=== PATIENT | male | born 1950 | race Caucasian/White ===

== ENCOUNTER 2022-09-18 07:37 | Inpatient (IN) ==
--- NOTE | 2022-08-17 15:43 | PAT Medication Instructions ---
Medication Instructions Date of Service August 17, 2022 Home Medications aspirin 81 mg tablet,delayed release 81 mg PO QAM lisinopril 10 mg tablet 10 mg PO QAM finasteride 5 mg tablet 5 mg PO QAM DO NOT take the morning of surgery lisinopril 10 mg tablet 10 mg PO QAM Take morning of surgery With a small sip of water, OTHERWISE NOTHING TO EAT OR DRINK AFTER MIDNIGHT: aspirin 81 mg tablet,delayed release 81 mg PO QAM (unless directed otherwise by surgeon) finasteride 5 mg tablet 5 mg PO QAM Other Notes If you have any questions please call us at [phone] or [phone] or [phone] or [phone]
--- NOTE | 2022-08-21 11:33 | Anesthesiology Consultation ---
Date of Service August 21, 2022 Assessment & Plan (1) Encounter for pre-operative examination: - COVID screening: Per assessment on 08/21: No known COVID-19 positive contacts or current COVID-19 related symptoms. Travel screen negative. Patient vaccinated. At surgeon discretion if preop Covid testing being done. - Outpatient joint pathway: Per OR booking comments, surgoen requested review for outpatient joint program. Patient seen at [facility] 08/21. Pt reports would be support person and she voiced concerns about caring post-operatively same day after surgery. He also reports significant difficulty with post-op pain management with previous knee replacement surgery. Case reviewed with Dr. Friend. Patient is not recommended candidate to proceed as possible outpatient joint pathway. Patient/Jeannie at surgeon's office made aware- pt changed to inpatient pathway. Chart Review Chart Review: Acceptable Risk for Surgery and Patient seen in Pre Admission Testing Teaching & Discussion Pre-Anesthesia Teaching/Discussion Notes: Instructed NPO after midnight before surgery,except medications with 15 cc of water. Medication instructions provided according to the [facility] guidelines. History Surgery Operation Date: 09/18/22 12:30 Proposed Procedures p Right Total Knee Arthroplasty - Jh Swain DO Height/Weight Height: 6 ft Weight: 95 kg Allergies Allergy/AdvReac Type Severity Reaction Status Date / Time No Known Drug Allergies Allergy Unknown . Verified 08/17/22 10:29 Medications Home Medications Medication Instructions Recorded Confirmed Last Taken aspirin 81 mg tablet,delayed 81 mg PO QAM 10/22/19 08/17/22 Unknown release lisinopril 10 mg tablet 10 mg PO QAM 10/22/19 08/17/22 Unknown finasteride 5 mg tablet 5 mg PO QAM 08/17/22 08/17/22 Unknown Past Medical History Medical History History of COVID-19 04/2022- sore throat, runny nose > resolved Hypertension Sleep apnea Cannot tolerate CPAP Exercise / Class Metabolic Activity II 4-5 Yardwork/Stairs/Walk up hill (one FS (no CP, no SOB)) Past Family History Family History Other No family history of adverse response to anesthesia Past Surgical History Surgical History History of knee replacement procedure of left knee History of meniscectomy of left knee Hx of arthroscopy of left knee Hx of colonoscopy Hx of laminectomy x3 Hx of rotator cuff surgery left Hx of sinus surgery Past Anesthesia History No Hx of Anesthesia Complications and No Family Hx of Anesthesia Complications Social History Smoking Status: Never smoker Do You Dip or Chew Tobacco: No Hx Alcohol Use: Yes alcohol intake frequency: a few times a month Hx Substance Use: No substance use type: does not use Review of Systems Patient denies chest pain, shortness of breath, dyspnea on exertion, fever, chills, cough, wheezing, palpitations. Physical Exam Vital Signs VITALS BP 147/88 P 68 TEMP 98.3 SP02 97%RA RESP 18 PHYSICAL Full cervical extension range of motion. Full TMJ range of motion. TMD 3 finger breaths Mallampati Score 3 Dentition: intact, + crowns Lungs: clear throughout to auscultation Cardiac: regular rate and rhythm, no murmurs noted Spine: normal Carotid arteries: negative bruit Extremities: no edema Lab Results Anesthesia Preop Results Results Anesthesia Widget: WBC 5.48 K/ul (4.8-10.8) 08/21/22 Hgb 15.7 g/dl (14.0-18.0) 08/21/22 Hct 44.9 % (40.1-51.0) 08/21/22 Plt 220 K/uL (130-400) 08/21/22 Na 139 mmol/L (136-145) 08/21/22 K 4.1 mmol/L (3.5-5.1) 08/21/22 Cl 106 mmol/L (98-107) 08/21/22 CO2 29 mmol/L (21-32) 08/21/22 BUN 14 mg/dl (6-23) 08/21/22 Creat 1.14 mg/dl (0.6-1.4) 08/21/22 Glucose Level 71 mg/dl (70-99(Fasting)) 08/21/22 PT 10.5 Seconds (9.0-12.0) 08/21/22 PTT 25.6 Seconds (21.0-31.0) 08/21/22 INR 1.0 (0.9-1.1) 08/21/22 Blood Type O Positive 08/21/22 Antibody Screen NEGATIVE 08/21/22 Testing Electrocardiogram Date: 08/21/22 NSR at 70bpm. Normal ECG. 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 Chest X-Ray Date: 08/21/22 FINDINGS: Lung volumes are normal. Lungs are clear. There is no pneumothorax or pleural effusion. Cardiac size is normal. Mediastinal contours are normal. There is no evidence for pulmonary edema. IMPRESSION: No acute cardiopulmonary findings. Stress Test Date: 02/09/17 Type: exercise EKG treadmill stress test negative for ischemia. Resting and exercise-induced arterial hypertension. No chest pain. 88% MPHR. COVID-19 Risk Screen Screening Information COVID-19 Screen Date: 08/21/22 Exposure 21 Days Family/Household +COVID Last 21 Days: No Exposure 10 Days Any COVID Exposure Last 10 Days: No Symptoms Last 10 Days Experienced COVID Sx Last 10 Days: No + COVID 0-90 Days COVID + in Last 0-90 Days: No
--- NOTE | 2022-09-14 08:38 | History & Physical Report ---
Date of Service September 14, 2022 Assessment & Plan (1) Osteoarthritis, knee: We will proceed with a right total knee arthroplasty. Postoperatively he will be started on aspirin for DVT prophylaxis and kept overnight in the hospital for postoperative medical management. He plans to use [employer] upon discharge. History of Present Illness Chief Complaint: Osteoarthritis of the right knee. Primary Care Provider: Ajit Oropeza MD Robert is a pleasant 72-year-old male who had a left knee replacement done by Dr. Torres in [facility] about 20 years ago. He has done well with that. Unfortunately, he is dealing with a lot of right knee pain. He has known osteoarthritis of his right knee. I have given him injections in the past. He is to the point where he cannotlive with the knee the way it is anymore. After failing conservative treatment, he has elected to proceed with a right total knee arthroplasty. Allergies Allergy/AdvReac Type Severity Reaction Status Date / Time No Known Drug Allergies Allergy Unknown . Verified 08/17/22 10:29 Home Medications Medication Instructions Recorded Confirmed Type aspirin 81 mg tablet,delayed 81 mg PO QAM 10/22/19 08/17/22 History release lisinopril 10 mg tablet 10 mg PO QAM 10/22/19 08/17/22 History finasteride 5 mg tablet 5 mg PO QAM 08/17/22 08/17/22 History Past Med/Surg History Medical History History of COVID-19 04/2022- sore throat, runny nose > resolved Hypertension Sleep apnea Cannot tolerate CPAP Surgical History History of knee replacement procedure of left knee History of meniscectomy of left knee Hx of arthroscopy of left knee Hx of colonoscopy Hx of laminectomy x3 Hx of rotator cuff surgery left Hx of sinus surgery Family History Other No family history of adverse response to anesthesia Social History Smoking Status: Never smoker Second Hand Exposure: No; Hx Alcohol Use: Yes Hx Substance Use: No Preferred Language: Malagasy Communication Ability: Effective Winder Helper Required: No Beliefs That Will Affect Care: None Current Living Situation: Spouse Feels Safe at Home: Yes Assistive Devices: Hearing Aid - Bilateral Review of Systems All systems reviewed & are unremarkable except as noted in HPI & below. Physical Exam On physical examination the right knee, he has a slight varus deformity. He is range of motion of 0 to 120 degrees. He has no instability. He has pain over the distal medial femoral condyle and over the medial joint line.. Constitutional WD/WN, vitals as above Eyes PERRL, conjunctivae normal, anicteric sclerae ENMT external ear and nose normal, oropharynx normal Neck trachea midline, no thyromegaly Respiratory normal respiratory effort, lungs clear to auscultation Cardiovascular RRR, no murmur, no edema Gastrointestinal (Abdomen) normal bowel sounds, soft, nontender, no hepatosplenomegaly Skin no rashes, warm and dry Psychiatric A+Ox3, euthymic affect Results & Data Results & Data Laboratory Results . Diagnostic Findings X-rays of the right knee show advanced osteoarthritis with joint space narrowing, osteophyte formation, and [id number] articulation. PG Care Time/CCT Total # of Minutes Spent Total Time Spent with Patient: Total time spent is greater than 50% in coordination of care (as documented) at patient's floor/unit and/or counseling patient: Coding Level of Care Code None Diagnoses Osteoarthritis, knee M17.10
[~2022-09-18 07:37] MED LIST: ACETAMINOPHEN 500 MG TAB PO SCH; BUPIVACAINE 0.5 % 5 MG/1 ML PF 10ML VIAL ONE; FAMOTIDINE 20 MG TAB PO SCH; GABAPENTIN 300 MG CAP PO SCH; LR 500ML BOLUS, THEN 15ML/HR IV SCH; LR 60ML/HR IV SCH; ORTHO JOINT MIX INFIL SCH; ROPIVACAINE 0.5% 5 MG/ML 30 ML VIAL ONE; TRANEXAMIC ACID 1,000 MG **IV Intra-op IV SCH; TRANEXAMIC ACID 1,000 MG **IV Pre-op IV SCH; ceFAZolin 2000MG 2,000 MG/15 ML SYR IV SCH; dexAMETHasone 4 MG TAB PO SCH
--- NOTE | 2022-09-18 10:44 | History & Physical Bridge Note ---
Date of Service September 18, 2022 History & Physical Bridge Note I have examined the patient, reviewed the History & Physical and in the interval since the performance of the History & Physical I have noted the following changes of clinical significance: no changes noted
[2022-09-18] MEDS ORDERED: MIDAZOLAM HCL 1 MG/ML 2ML VIAL ONE (11:48)
[2022-09-18] MEDS ORDERED: ORTHO JOINT ANESTHETIC ONE (13:06)
[2022-09-18] MEDS ORDERED: LIDOCAINE 2% MPF LOCAL 5 ML VIAL INFIL ONE (14:11)
[2022-09-18] MEDS ORDERED: PROPOFOL IV EMULSION 10 MG/ML 20 ML VIAL IV ONE (14:11)
[2022-09-18] MEDS ORDERED: PHENYLEPHRINE HCL 10 MG/ML VIAL ONE (14:35)
--- NOTE | 2022-09-18 14:47 | Operative Report ---
PG Post Operative Report Pre & Post Diagnosis Operation Date: 09/18/22 12:30 Pre-Op Diagnosis: Right Knee Osteoarthritis Post-Op Diagnosis: Right Knee Osteoarthritis I identified the patient and participated in the time-out.: Yes Procedure Operation Date: 09/18/22 12:30 Actual Procedures p Right Total Knee Arthroplasty(Right) - Jh Swain DO Surgeon Jh Swain DO Chemical Process Analyst Jh Altman PA-C Estimated Blood Loss 20 Findings Consistent with Post-Op Diagnosis Specimens Right femoral and tibial bone Description of Procedure Implants used: I used a Jemma Persona total knee arthroplasty system with a size 10 PS femur, G tibia, 37 oval patella, and a size 10 CPS polyethylene bearing. All components were cemented in place with Biomet cement. Robert arrived [facility] for the above procedure. He was seen in the preoperative holding area and the operative extremity was identified and signed. He was given a preoperative antibiotic, TXA, a spinal anesthetic and an adductor nerve block. He was taken back to the operating room and laid on the table in supine position. He was given basic sedation. The operative knee was then prepped and draped in sterile fashion. A timeout was done, and the patient and the operative extremity was properly identified. A midline incision was made directly over the patella. Dissection was taken down to the extensor mechanism. A subvastus arthrotomy was used. The medial retinaculum was released and the fat pad was mostly excised. The knee was flexed and the ACL, PCL, and meniscus were removed. A drill was sent down the center of the femoral canal followed by an intramedullary matheus. Off that matheus a distal femoral cutting block was placed. 9 mm was resected off the distal femur at 5 of valgus. A posterior referencing AP sizing guide was then placed on the distal femur. The femur measured to be a size 10. 2 drill holes were placed in 3 of external rotation. A 4-in-1 cutting block was then impacted into place. Anterior, posterior, and chamfer cuts were then made. The proximal tibia was then exposed. An external tibial alignment guide was placed. A tibial cut guide was then anchored in place and the proximal tibia was then resected. The posterior aspect of the knee was then opened up and any additional meniscus fragments and osteophytes were removed. The tibia measured to be a size G. The tibial plate was then placed in the appropriate rotation and the tibia was drilled and punched. Trial components were then placed. I used a size 10 CPS polyethylene insert. The knee was brought through a full range of motion and felt to be stable. The peg holes for the femoral component were then drilled. The patella was then everted and 9 mm was resected off the posterior aspect of the patella. The patella measured to be a size 37 oval. 3 peg holes were then drilled. A trial patella was placed. The knee was once again brought through a full range of motion and felt to be stable. Trial components were then removed. The surrounding soft tissues were injected with 100 cc of an orthopedic pain control cocktail. All components were then cemented into place with Biomet cement. The final polyethylene insert was then snapped into place. Once cement was dry the tourniquet was deflated. Hemostasis was obtained. A dilute betadyne lavage was then done for 3 minutes. The joint was then irrigated with normal saline solution. The subvastus arthrotomy was then closed with #1 Vicryl suture. The skin was closed with 2-0 Vicryl, 3-0V lock suture, and marin. A soft compressive dressing was placed. He was then transferred to a hospital bed and taken to the postanesthesia care unit in stable condition. He tolerated the procedure well. Jh Altman PA-C, was present for the entire procedure. He was critical for patient positioning, prepping, draping, retraction exposure, wound closure and application of sterile dressing. I attest to the content of the Intraoperative Record and any orders documented therein. Any exceptions are noted below.
--- NOTE | 2022-09-18 15:46 | XRay Report ---
XR knee RT 1 or 2V routine HISTORY: 72 years-old Male Surgical Post Op right knee total joint arthroplasty COMPARISON: None TECHNIQUE: 2 views of the right knee FINDINGS: Total joint arthroplasty with patellar resurfacing. Anterior midline skin marin are noted along wit h expected postoperative soft tissue swelling with deep tissue air. No acute fracture or unexpected o paque foreign body. IMPRESSION: Total joint arthroplasty and patella resurfacing with expected postoperative changes. ACT 112: Negative or not required by law. The above report was generated using voice recognition software. It may contain grammatical, syntax o r spelling errors. Electronically signed by: Leon Jacob M.D. 09/18/2022 3:44 PM
--- NOTE | 2022-09-18 17:09 | Anesthesiology Progress Note ---
Date of Service September 18, 2022 Anesthesia Post Procedure Vital Signs Vital Signs: Temp Pulse Pulse Resp BP Pulse Ox O2 Del Method 09/18/22 16:55 36.3 C L 67 20 130/84 98 Room Air 09/18/22 16:45 72 15 140/83 96 Room Air 09/18/22 16:35 69 16 135/78 98 Room Air 09/18/22 16:25 73 18 130/95 97 Room Air 09/18/22 16:15 73 15 134/86 98 Room Air 09/18/22 16:05 71 15 129/79 95 Room Air 09/18/22 15:55 71 17 128/82 96 Room Air 09/18/22 15:45 71 18 127/79 95 Room Air 09/18/22 15:35 73 16 114/77 98 Room Air 09/18/22 15:25 72 16 126/74 100 Oxymask 09/18/22 15:15 36.4 C L 99 H 16 130/82 98 Oxymask 09/18/22 09:30 Room Air 09/18/22 09:28 36.4 C L 92 H 20 174/104 H 97 Room Air O2 Flow Rate 09/18/22 16:55 09/18/22 16:45 09/18/22 16:35 09/18/22 16:25 09/18/22 16:15 09/18/22 16:05 09/18/22 15:55 09/18/22 15:45 09/18/22 15:35 09/18/22 15:25 5 09/18/22 15:15 5 09/18/22 09:30 09/18/22 09:28 Transfer of Care Handoff Completed per policy Notes Mental Status: alert / awake / arousable Patient Amnestic to Procedure: Yes Nausea / Vomiting: adequately controlled Pain: adequately controlled Airway Patency, RR, SpO2: stable & adequate BP & HR: stable & adequate Hydration State: stable & adequate Neuraxial Anesthesia: was administered and sensory block is resolving Anesthetic Complications: no major complications apparent and Pt Satisfied with anesthetic care
[2022-09-18] MEDS ORDERED: NALOXONE HCL 0.4 MG/1 ML VIAL/CARP IV PRN (17:30)
[2022-09-18] MEDS ORDERED: METOCLOPRAMIDE HCL INJ 5 MG/ML 2 ML VIAL IV PRN (17:30)
[2022-09-18] MEDS ORDERED: ONDANSETRON INJ 2 MG/ML 2 ML VIAL IV PRN (17:30)
[2022-09-18] MEDS ORDERED: HYDROmorphone INJ 0.5 MG/0.5 ML SYR IV PRN (17:30)
[2022-09-18] MEDS ORDERED: MAGNESIUM HYDROXIDE SUSP 30 ML UDC PO PRN (17:30)
[2022-09-18] MEDS ORDERED: bisacodyL 10 MG SUPP PR PRN (17:30)
[2022-09-18] MEDS: SODIUM CHLORIDE 0.9% 1000ML 1,000 ML IV SCH (18:23)
[2022-09-18] MEDS: KETOROLAC TROMETHAMINE 15 MG/ML VIAL IV SCH (18:23)
[2022-09-18] MEDS: ASPIRIN 81 MG ECTAB PO SCH (20:27)
[2022-09-18] MEDS: SENNA 8.6 MG TAB PO SCH (20:27)
[2022-09-18] MEDS: DOCUSATE SODIUM 100 MG CAP PO SCH (20:27)
[2022-09-18] MEDS: ceFAZolin 2000MG 2,000 MG/15 ML SYR IV SCH (20:31)
[2022-09-18] MEDS: ACETAMINOPHEN 500 MG TAB PO SCH (22:02)
[2022-09-19] MEDS: SODIUM CHLORIDE 0.9% 1000ML 1,000 ML IV SCH (04:10)
[2022-09-19] MEDS: ACETAMINOPHEN 500 MG TAB PO SCH ×3 (05:24→21:05)
[2022-09-19] MEDS: KETOROLAC TROMETHAMINE 15 MG/ML VIAL IV SCH ×4 (05:24→18:16)
[2022-09-19] MEDS: ceFAZolin 2000MG 2,000 MG/15 ML SYR IV SCH (05:24)
--- NOTE | 2022-09-19 06:27 | Orthopedic Progress Note ---
Date of Service September 19, 2022 Assessment & Plan (1) Status post right knee replacement: Overall is doing very well. Is not having much pain in the right knee. He will be seen by physical therapy again today for ambulation and range of motion exercises. He is on aspirin for DVT prophylaxis. He can be discharged home later today. He will follow-up with orthopedics in 2 weeks. Yogesh Jones was seen and examined at bedside this morning. Overall he is doing very well. Is not having much pain in the right knee. He is already been up and ambulating around his room. He has no complaints.. Review of Systems All systems reviewed & are unremarkable except as noted in HPI & below. Physical Exam On physical examination of the right knee, the dressing is clean and dry. His leg is out full extension. He is active dorsiflexion and plantarflexion of his right ankle.. Results & Data Results & Data Laboratory Results . Diagnostic Findings Postoperative x-rays of the right knee show the prosthesis to be in anatomic alignment without any evidence of fracture, screws, or loosening. PG Care Time/CCT Total # of Minutes Spent Total Time Spent with Patient: Total time spent is greater than 50% in coordination of care (as documented) at patient's floor/unit and/or counseling patient: Coding Level of Care Code 83781 Post Operative Follow-Up Diagnoses Status post right knee replacement Z96.651
--- NOTE | 2022-09-19 06:28 | Discharge Summary ---
Date of Service September 19, 2022 Admission HPI (Per Admitting) Robert is a pleasant 72-year-old male who had a left knee replacement done by Dr. Torres in [facility] about 20 years ago. He has done well with that. Unfortunately, he is dealing with a lot of right knee pain. He has known osteoarthritis of his right knee. I have given him injections in the past. He is to the point where he cannotlive with the knee the way it is anymore. After failing conservative treatment, he has elected to proceed with a right total knee arthroplasty. Admission Exam (Per Admitting) On physical examination the right knee, he has a slight varus deformity. He is range of motion of 0 to 120 degrees. He has no instability. He has pain over the distal medial femoral condyle and over the medial joint line.. Principal Diagnosis Same as "Discharge Diagnosis" noted below under Discharge Instructions. Discharge Exam On physical examination of the right knee, the dressing is clean and dry. His leg is out full extension. He is active dorsiflexion and plantarflexion of his right ankle.. Discharge Data Procedures Performed Operation Date: 09/18/22 12:30 Actual Procedures p Right Total Knee Arthroplasty(Right) - Jh Swain DO Ordered Studies 09/18/22 05:00 US - OR guided needle placemen Routine Hospital Course (1) Status post right knee replacement: On September 18, [address] [facility] and underwent a right knee replacement without complication. He had a spinal anesthetic. Postoperatively he was started on aspirin for DVT prophylaxis and transferred to the general orthopedic floors. His hospital course was uneventful. On postop day #1, his vital signs were stable and his pain was well controlled. He was able to participate well with physical therapy doing ambulation and range of motion exercises. He was then discharged home. He will follow-up with orthopedics in 2 weeks. PG Care Time/CCT Total # of Minutes Spent Total Time Spent with Patient: Total time spent is greater than 50% in coordination of care (as documented) at patient's floor/unit and/or counseling patient: Discharge Plan Discharge Items Patient Disposition: Home - Home Health Services Reason For Visit: DJD Right Knee Discharge Diagnosis: Right knee replacement Activity: Per Instructions section Non-emergency contact: Surgeon Call non-emergency contact if: your wound has increased redness and your wound has increased drainage Follow-up/Referrals: Lebron Pop MD [Primary Care Provider] - Diet: Regular Addtl Attending Provider Instructions: Activity and Therapy Recommendations: * If you are using [facility] then therapy will be provided at your home until they feel you have accomplished all of your goals. * If you are using [facility] then Physical Therapy will be provided until they feel you are ready to start Outpatient Physical Therapy. * If you are not using home therapy then Outpatient Physical Therapy should start about 3-5 days from your day of surgery. Therapy will last about 6-10 weeks * It is important not to put a pillow under your knee when you are relaxing or sleeping. It is just as important to make sure you are getting your knee perfectly straight as it is to regain your knee bend. * You were shown a series of exercises in the hospital. Do these exercises three times each day including the exercises you were shown in physical therapy. * Get up and walk several times each day. For the first four weeks, try not to stand or walk for more than one hour at a time. If you do stand or walk for more than one hour, you will not hurt anything, but your leg will likely swell. * As you feel comfortable, you may change from the walker or crutches to a cane and then to independent walking. Medications: * Narcotic You will likely be sent home from the hospital with a prescription for the narcotic pain medication that worked best throughout your stay. * Aspirin Most patients will be required to take Aspirin 81mg twice a day for 6 weeks after surgery. This is obtained [id number] and a prescription is not necessary. * Other medications may be prescribed for specific circumstances. If you have any questions, please call the office at . * Resume previous home medications unless otherwise instructed TEDs/Elastic Stockings: The white elastic stockings help limit swelling and prevent blood clots from forming in your legs.~ The more you wear them, the more they work. Wear them for six weeks. Dressing Care: The dressing can be changed after physical therapy on postop day #1. Daily dry dressing changes for a few days, especially if the incision is still draining some. If the incision is not draining then you may leave the marin open to air. If there is a little bit of drainage or if the marin are getting stuck on your clothing then cover the incision with a dry dressing. The marin will be removed at your 2 week follow-up appointment. Showering: You may shower 5 days from the day of surgery as long as the incision is no longer draining. You may shower with the marin exposed. Let soapy water run over the marin and pat them dry. Do not scrub or soak the incision. Things To Watch For: * Drainage from the incision site that occurs more than one week after your surgery. * Increased redness at the incision site. * Fever above 102 degrees Fahrenheit. * Unusual chest pain or shortness of breath. * Call [facility] at with any of the above problems Follow-Up Visit: Follow-up with Dr. Swain's PA (Jh Altman) 2-3 weeks after your day of surgery. He will remove your marin and answer any questions. If you have any additional questions or concerns, Dr Swain is usually in the office at the same time and will be available An appointment was probably scheduled when you signed-up for surgery in the office. If you have any questions call Office Instructions: More detailed instructions as well as Frequently Asked Questions were provided in a folder by our office when you signed-up for surgery. Please review these instructions when you get home. If you have any further questions or concerns, please feel free to call the office at [phone] Pending Studies at Discharge: No Stand-Alone Forms: My [facility] Medications and DC Order Prescriptions: New oxycodone-acetaminophen 5-325 mg tablet 1 tab PO Q6H PRN (Reason: pain) Qty: 30 0RF Continued lisinopril 10 mg tablet 10 mg PO QAM finasteride 5 mg Tablet 5 mg PO QAM Changed aspirin 81 mg tablet,delayed release (DR/EC) 81 mg PO BID 42 Days Qty: 0 0RF Discharge Orders: Discharge Order (Routine); Ordered 09/19/22 Ordered By: Jh Swain Admission Data Admit Date/Time: 09/18/22 15:17 Attending Provider: Jh Swain Admit Provider: Jh Swain Primary Care Provider: Lebron Pop
[2022-09-19] MEDS ORDERED: dexAMETHasone 4 MG TAB PO SCH (08:00)
[2022-09-19] MEDS: lisinopril 10 MG TAB PO SCH (08:36)
[2022-09-19] MEDS: ASPIRIN 81 MG ECTAB PO SCH ×2 (08:36→21:04)
[2022-09-19] MEDS: DOCUSATE SODIUM 100 MG CAP PO SCH ×2 (08:36→21:06)
[2022-09-19] MEDS: FINASTERIDE 5 MG TAB PO SCH (08:36)
[2022-09-19] MEDS: MULTIVITAMIN TAB PO SCH (08:37)
--- NOTE | 2022-09-19 09:56 | CT Scan Report ---
HEAD CT NONCONTRAST CT DOSE: 614.27 mGy.cm HISTORY: Left-sided weakness. Stroke. TECHNIQUE: Multiaxial CT images of the head were performed without the use of intravenous contrast. A utomated exposure control was utilized for this study. A dose lowering technique was utilized adheri ng to the principles of ALARA. Comparison: None. Findings: There is a 1.3 cm polyp/retention cyst within the left nasal cavity and image 3. The mastoi d air cells are clear. There are mild atrophy and mild microvascular ischemic change noted within the brain. There is no mass, hematoma, or midline shift. Linear focus of hypodensity within the right po sterior frontal lobe near the high convexity best seen on images 25 through 28. There is associated l oss of the mills-white junction. This is consistent with a small acute infarct. Impression: Small acute infarct involving the right posterior frontal lobe near the high convexity. No intracrani al hemorrhage. ACT 112: Negative or not required by law. Electronically signed by: Tanmay Gonzalez M.D. 09/19/2022 9:54 AM
[2022-09-19 10:27] LABS: Hematocrit (blood only) 38.6 % (40.1-51.0); Mean Corpuscular Hgb Conc 36.3 g/dL (32.0-36.0); Mean Corpuscular Volume 85.4 fL (80.0-100.0); Mean Platelet Volume 9.2 fL (9.4-12.4); Platelet Count 214 K/uL (130-400); RDW Coefficient of Variation 11.9 % (11.5-14.5); Red Blood Count 4.52 M/uL (4.63-6.08); White Blood Count 16.19 K/ul (4.8-10.8)
[2022-09-19 10:38] LABS: Partial Thromboplastin Ratio 0.9; Partial Thromboplastin Time 23.8 Seconds (21.0-31.0); Prothrombin Time 10.8 Seconds (9.0-12.0)
[2022-09-19] MEDS ORDERED: LORazepam 1 MG TAB PO ONE ×2 (10:55→14:30)
[2022-09-19 11:15] LABS: Albumin Level 4.1 gm/dl (3.4-5.0); BUN Creatinine Ratio 20.2 (10-20); Bilirubin,Total 0.5 mg/dl (0.2-1.0); Creatinine Clr Calc Pharmacy 60.1 ml/min; Est GFR (African American) 62.9 ml/min; Est GFR (Non-African American) 54.3 ml/min; Magnesium 2.2 mg/dl (1.7-2.4); Potassium 3.9 mmol/L (3.5-5.1); Total Protein 6.1 gm/dl (6.0-8.3)
[2022-09-19 11:56] LABS: Chol HDL Ratio 4.5 (0-5)
[2022-09-19 13:03] LABS: Estimated Average Glucose 114 mg/dl; Hemoglobin A1C 5.6 % (4.5-5.6)
--- NOTE | 2022-09-19 13:09 | XCELERA ---
[id number]
--- NOTE | 2022-09-19 13:28 | Electrocardiogram Report ---
Test Reason : Blood Pressure : / mmHG Vent. Rate : 124 BPM Atrial Rate : 124 BPM P-R Int : 174 ms QRS Dur : 068 ms QT Int : 302 ms P-R-T Axes : 065 -06 085 degrees QTc Int : 433 ms Sinus tachycardia Left atrial enlargement Nonspecific T wave abnormality Lateral leads Abnormal ECG When compared with ECG of 21-AUG-2022 11:54, Vent. rate has increased BY 54 BPM Nonspecific T wave abnormality Lateral leads now present Confirmed by Jeffrey Kendrick ([id number]) on 09/19/2022 1:28:28 PM Referred By: Jh Swain Confirmed By:Jeffrey Kendrick
--- NOTE | 2022-09-19 14:34 | Hospitalist Consultation ---
Date of Consultation September 19, 2022 Assessment & Plan (1) Stroke: Stroke alert on 09/19 for left facial numbness, left facial droop, and left hand numbness/weakness. Last known well was prior night as patient noted the symptoms in the AM but no know time well in the morning. - CT head on 09/19 showing acute stroke - Full stroke work-up pending: * MRI brain * CTA head/neck * A1c of 5.6%, lipids showed LDL 130, HDL 42. * Echo on 09/19 showed no PFO * Neuro consulted - Will see tomorrow - Optimize meds with ASA, statin - Likely discharge tomorrow. (2) Status post right knee replacement: S/p right TKA with Dr. Swain on 09/18. No major issues noted in operative report. - Care per primary team (3) Hypertension: BP normally in the 140/80 range. SBP as high as 220 in acute setting of stroke alert, but now back down to 160/90. - Permissive hypertension in acute stroke setting - Continue home lisinopril for now (4) Carpal tunnel syndrome of left wrist: Long-standing hand pain in the left hand. Is following with Dr. Swain. - No acute needs (5) DVT prophylaxis: History of Present Illness Attending Physician: Jh Swain, DO History of Present Illness 72yo M w/ hx of HTN who presents as a stroke alert at 9:15am. Per patient, he went to bed in normal state of health after a routine right TKA with Dr. Swain. This morning, he felt his left hand was more numb and clumsy than it was when he went to bed. He has long-standing carpal tunnel which has been worse over the last few months. When he woke up this morning, he felt his left hand was more clumsy than before and that it was more numb as well. Additionally, he felt his left-side of the face had a droop where there wasn't one before. He is not sure if he woke up with the numbness and clumsiness of his hand, though he knows it was present when eating breakfast. Likewise, for his face, he noted it when cleaning up this morning, but otherwise is not sure when it began. Otherwise, he notes no other neurologic symptoms such as dysphagia, aphasia, weakness, numbness, or other concerns. Allergies Allergy/AdvReac Type Severity Reaction Status Date / Time No Known Drug Allergies Allergy Unknown . Verified 09/18/22 09:27 Home Medications Medication Instructions Recorded Confirmed Type aspirin 81 mg tablet,delayed 81 mg PO QAM 10/22/19 09/18/22 History release lisinopril 10 mg tablet 10 mg PO QAM 10/22/19 09/18/22 History finasteride 5 mg tablet 5 mg PO QAM 08/17/22 09/18/22 History oxycodone-acetaminophen 5 mg-325 1 tab PO Q6H PRN pain #30 tabs 09/19/22 Rx mg tablet Patient History Medical History (Updated 09/19/22 @ 14:56 by Angelito Molina MD) History of COVID-19 04/2022- sore throat, runny nose > resolved Hypertension Sleep apnea Cannot tolerate CPAP Surgical History History of knee replacement procedure of left knee History of meniscectomy of left knee Hx of arthroscopy of left knee Hx of colonoscopy Hx of laminectomy x3 Hx of rotator cuff surgery left Hx of sinus surgery Family History Other No family history of adverse response to anesthesia Social History Smoking Status: Never smoker Second Hand Exposure: No; Do You Dip or Chew Tobacco: No; Tobacco Cessation Education Requested by Patient: No Hx Alcohol Use: Yes Hx Substance Use: No Preferred Language: Belarusian Communication Ability: Effective Colorman Required: No Beliefs That Will Affect Care: None Current Living Situation: Spouse Other Information That Helps Us Care for You: No Feels Safe at Home: Yes Safety Concerns: Feels Safe At This Time Assistive Devices: Walker Review of Systems Review of Systems: All systems reviewed & are unremarkable except as noted in HPI & below Physical Exam Constitutional: WD/WN, vitals as above Eyes: EOM intact bilaterally; no conjunctival abnormality ENMT: external ear and nose normal, oropharynx normal Neck: trachea midline, no thyromegaly normal visual inspection Respiratory: normal respiratory effort, lungs clear to auscultation no respiratory distress Cardiovascular: RRR, no murmur, no edema Gastrointestinal (Abdomen): Inspection/Auscultation: abdomen normal to inspection; abdomen not distended Musculoskeletal: no cyanosis or clubbing, extremities motor strength 5/5 Skin: no rashes, warm and dry Neurologic: moves all extremities and awake Left hand with poor coordination. Left facial droop. Psychiatric: Orientation: alert, oriented to person and cooperative Results & Data Results & Data ([facility]) Vital Signs (Past 12 Hours) Vital Signs Temp Pulse Pulse Pulse Resp BP Pulse Ox 09/19/22 13:48 159/90 H 09/19/22 10:22 106 H 09/19/22 10:30 36.6 C 105 H 107 H 16 168/82 H 97 09/19/22 09:23 123 H 222/125 H 97 09/19/22 09:20 122 H 227/119 H 98 09/19/22 08:00 09/19/22 07:41 36.6 C 78 16 152/81 H 95 09/19/22 07:16 36.6 C 69 75 16 145/74 H 94 O2 Del Method 09/19/22 13:48 09/19/22 10:22 09/19/22 10:30 Room Air 09/19/22 09:23 Room Air 09/19/22 09:20 Room Air 09/19/22 08:00 Room Air 09/19/22 07:41 Room Air 09/19/22 07:16 PG Care Time/CCT Total # of Minutes Spent Total Time Spent with Patient: Total time spent is greater than 50% in coordination of care (as documented) at patient's floor/unit and/or counseling patient: Coding Level of Care Code 76280 Inpt Consult Level 5 Diagnoses Stroke I63.9 Status post right knee replacement Z96.651 Hypertension I10 Carpal tunnel syndrome of left wrist G56.02 DVT prophylaxis Z29.9
[2022-09-19] MEDS ORDERED: OPTIRAY 320 500ml IV ONE (15:51)
--- NOTE | 2022-09-19 17:08 | CT Scan Report ---
CT angio neck with con, CT angio head w con CLINICAL HISTORY: 72 years-old Male with Stroke. Acute strokelike symptoms COMPARISON STUDY: Head CT of same day TECHNIQUE: Following the IV administration of 110 mL of Optiray, CT angiogram of the head and neck wa s performed from the aortic arch to the skull apex. Images are reviewed in the axial, sagittal, and c oronal planes. 3-D MIPS images are created and assessed. IV contrast was administered without complic ation. All measurements were calculated based on NASCET criteria. A dose lowering technique was util ized adhering to the principles of ALARA. CT DOSE: 626.73 mGy.cm FINDINGS: Atherosclerosis of the thoracic aortic arch. There is patency of the innominate and imaged subclavian arteries. The common carotid arteries are patent. There is moderate atherosclerotic plaque of the ca rotid bulbs and proximal cervical segments of the internal carotid arteries. There is less than 50% s tenosis of the right ICA. There is approximately 50% stenosis of the proximal cervical segment left I CA on image 288. Prominent atherosclerotic plaque of the cavernous and clinoid segments resulting in 50% stenosis of the cavernous segment left ICA. Short segment focus of high-grade stenosis (greater t hummel 70%) is noted within the distal petrous segment of the right ICA, image 49 series 3. Moderate fabien nosis of the mid to distal portion of the M1 segment right middle cerebral artery. The left middle ce rebral artery is patent. Developmentally diminutive left A1 segment. Anterior cerebral arteries are p atent. Calcified plaque at the origin of the vertebral arteries causes moderate stenosis on the right and high-grade stenosis on the left. Dominant right vertebral artery. High-grade stenosis of the V2 segment left vertebral artery at the level of C6. There is a high-grade stenosis is noted within the V4 segment left vertebral artery. The basilar and posterior cerebral arteries are patent. The cerebra l venous sinuses are patent. There is no abnormal intracranial enhancement. Small acute infarct of th e superior right frontal lobe. Lung apices are clear. Unremarkable soft tissues. Polypoid mucosal thickening of the maxillary sinuse s. Multilevel degenerative changes of the cervical spine. IMPRESSION: 1. Small acute infarct of the superior right frontal lobe again noted. 2. No acute intracranial hemorrhage or midline shift. 3. Short segment focus of high-grade stenosis involves the distal petrous segment of the right ICA. 4. Additional areas of high-grade stenosis noted within the left vertebral artery. 5. No dissection, aneurysm or arterial occlusion identified. ACT 112: Negative or not required by law. The above report was generated using voice recognition software. It may contain grammatical, syntax o r spelling errors. Electronically signed by: Leon Jacob M.D. 09/19/2022 5:07 PM
--- NOTE | 2022-09-19 17:47 | Magnetic Resonance Report ---
MRI OF THE BRAIN WITHOUT IV CONTRAST CLINICAL HISTORY: Strokelike symptoms. Left-sided weakness. COMPARISON STUDY: CT of the brain dated 09/19/2022. TECHNIQUE: MRI of the brain was performed utilizing various T1 and T2-weighted sequences in the axial , sagittal, and coronal planes. IV contrast was not administered for this examination. FINDINGS: Brain parenchyma: There are foci of restricted diffusion throughout the high right frontoparietal cor vasquez consistent with acute to subacute ischemia. No additional foci of acute ischemia identified. Ther e is no hemorrhage or mass effect. No extra-axial fluid collection is seen. There is age related invo lutional change noting mild subcortical and periventricular microangiopathic disease. The cerebellar tonsils are normal in configuration. Ventricles, sulci, and cisterns: Normal in configuration. Pituitary and sella: Unremarkable. Intracranial vasculature: Normal flow voids are maintained at the skull base. Orbits: The bony orbits are grossly intact. Orbital contents are normal in appearance noting bilatera l ocular lens implant. Sinuses and mastoids: Retention cysts within the maxillary antra measure up to 1.7 cm. There is trace mucosal thickening within the maxillary and ethmoid sinuses. The mastoid air cells are clear. Calvarium: Unremarkable. Cervical cord: Partially visualized cervical spinal cord is normal in morphology and signal intensity . IMPRESSION: 1. Foci of restricted diffusion are seen throughout the high right frontoparietal cortex consistent w ith acute to subacute infarcts. These are located within the right MCA territory. 2. There is no hemorrhage or mass effect. 3. No additional foci of acute ischemia are identified. ACT 112: Negative or not required by law. Electronically signed by: Joel Thacker M.D. 09/19/2022 5:44 PM
[2022-09-19] MEDS: ATORVASTATIN 40 MG TAB PO SCH (21:04)
[2022-09-19] MEDS: SENNA 8.6 MG TAB PO SCH (21:06)
[2022-09-20] MEDS: KETOROLAC TROMETHAMINE 15 MG/ML VIAL IV SCH ×2 (00:55→06:09)
[2022-09-20] MEDS: ACETAMINOPHEN 500 MG TAB PO SCH ×3 (06:09→21:11)
--- NOTE | 2022-09-20 06:19 | Orthopedic Progress Note ---
Date of Service September 20, 2022 Assessment & Plan (1) Status post right knee replacement: Kulwnat is doing well with regards to his right knee, but unfortunately suffered a stroke. He is already had an MRI of his brain which showed small acute foci in the right frontal hemisphere. He is planning to be seen by the neurologist today. He will be seen by physical therapy today as well. The nursing staff can change the dressing. He is currently on aspirin and Plavix. He is orthopedically stable for discharge when medically ready. Yogesh Jones was seen and examined at bedside this morning. He is doing well with regards to his knee, unfortunately suffered an acute stroke yesterday morning. He is noted some facial droop on the left side and weakness in his left hand. He had a CT scan of his head as well as an MRI. He was seen by the hospitalist. He was started on Plavix in addition to his aspirin.. Review of Systems All systems reviewed & are unremarkable except as noted in HPI & below. Physical Exam On physical examination of the right knee, the dressing is clean and dry. The leg is out full extension. He is active dorsiflexion plantarflexion of his right ankle. He is also dealing with a facial droop on the left side and weakness with wrist extension on the left.. Results & Data Results & Data Laboratory Results . Diagnostic Findings . PG Care Time/CCT Total # of Minutes Spent Total Time Spent with Patient: Total time spent is greater than 50% in coordination of care (as documented) at patient's floor/unit and/or counseling patient: Coding Level of Care Code 59086 Post Operative Follow-Up Diagnoses Status post right knee replacement Z96.651
[2022-09-20] MEDS: MULTIVITAMIN TAB PO SCH ×2 (08:56→09:34)
[2022-09-20] MEDS: lisinopril 10 MG TAB PO SCH ×2 (08:56→09:33)
[2022-09-20] MEDS: DOCUSATE SODIUM 100 MG CAP PO SCH ×3 (08:56→21:15)
[2022-09-20] MEDS: FINASTERIDE 5 MG TAB PO SCH ×2 (08:56→09:33)
[2022-09-20] MEDS: ASPIRIN 81 MG ECTAB PO SCH ×2 (08:57→09:33)
[2022-09-20] MEDS: CLOPIDOGREL BISULFATE 75 MG TAB PO SCH (09:33)
[2022-09-20] MEDS: oxyCODONE HCL IR 5 MG TAB (IMMEDIATE RELEASE) PO PRN (11:35)
--- NOTE | 2022-09-20 11:35 | Neurology Consultation ---
Date of Consultation September 20, 2022 Assessment & Plan (1) Stroke: (2) Carotid stenosis, right: (3) Stenosis of left vertebral artery: Plan 72-year-old male with acute multifocal infarct within the right MCA territory with evidence of a short segment focus of high-grade stenosis involving the distal petrous segment of the right ICA. This patient has a left hemiparesis affecting the face and arm greater than the leg as well as an element of left hemineglect for the left upper limb. Patient's signs and symptoms were most notable yesterday morning, upon awakening. However, he does remark that he has perceived intermittent numbness and tingling affecting the left hand for several months, and in fact had an EMG for possible carpal tunnel syndrome on July 03, 2022. This study was unremarkable, however. I agree with short-term dual antiplatelet therapy, aspirin 81 mg/day and Plavix 75 mg/day for the next 3 weeks. After which, would transition to Plavix monotherapy. I agree with initiation of atorvastatin 40 mg/day. Systolic blood pressure goal 140 to 160 mmHg acutely Consider obtaining mobile cardiac outpatient telemetry. The short segment focus of high-grade stenosis involving the distal petrous segment of the right ICA would not be amenable to surgical treatment although in some instances, stenting can be considered. Patient would need a semiurgent referral to [facility] to see a neurovascular specialist for this type of assessment. Could be done as an outpatient within the next 2 to 3 weeks. Surgical intervention or stenting would not be recommended for this patient's high-grade stenosis within the left vertebral artery. Consultations with PT/OT/speech therapy. History of Present Illness Reason for Consultation: Stroke Requesting Physician: Dr. Molina Attending Physician: Jh Swain DO History of Present Illness The patient is a 72-year-old male with a chief complaint of left-sided weakness that was evident upon awakening yesterday morning. He was admitted to the [facility], the day prior, on September 18 for a right total knee arthroplasty which was completed that day. The following morning the patient began to notice significant weakness affecting the left hand, arm, and left side of the face. A CT of the head revealed a small acute infarct involving the right posterior frontal lobe near the high convexity without evidence of hemorrhage. A follow-up brain MRI revealed multiple foci of restricted diffusion throughout the high right frontoparietal cortex consistent with acute to subacute infarcts following a right MCA territory distribution. A CT angiogram of the head and neck revealed a short segment focus of high-grade stenosis involving the distal petrous segment of the right ICA with additional areas of high-grade stenosis noted within the left vertebral artery. I independently reviewed all of these images and agree with these findings as described by the interpreting radiologist. Past medical history notable for hypertension. Patient has been taking lisinopril as well as daily low-dose aspirin as an outpatient. No prior history of stroke or TIA. The patient does inform me that while he was driving to the hospital for his elective knee surgery, he noticed some numbness and tingling affecting the left hand and thought it may have been carpal tunnel syndrome. Patient has been started on dual antiplatelet therapy, taking daily low-dose aspirin and clopidogrel. Lipitor has also been added to his medication regimen. He continues to report significant weakness for the left hand and upper limb, as well as some associated left facial weakness. He also reports some sensory disturbance for the left hand and arm as well. No headache or vision loss. Allergies Allergy/AdvReac Type Severity Reaction Status Date / Time No Known Drug Allergies Allergy Unknown . Verified 09/18/22 09:27 Home Medications Medication Instructions Recorded Confirmed Type aspirin 81 mg tablet,delayed 81 mg PO QAM 10/22/19 09/18/22 History release lisinopril 10 mg tablet 10 mg PO QAM 10/22/19 09/18/22 History finasteride 5 mg tablet 5 mg PO QAM 08/17/22 09/18/22 History oxycodone-acetaminophen 5 mg-325 1 tab PO Q6H PRN pain #30 tabs 09/19/22 Rx mg tablet Patient History Medical History (Updated 09/20/22 @ 11:22 by Jh Turner MD) History of COVID-19 04/2022- sore throat, runny nose > resolved Hypertension Sleep apnea Cannot tolerate CPAP Surgical History History of knee replacement procedure of left knee History of meniscectomy of left knee Hx of arthroscopy of left knee Hx of colonoscopy Hx of laminectomy x3 Hx of rotator cuff surgery left Hx of sinus surgery Family History Other No family history of adverse response to anesthesia Social History Smoking Status: Never smoker Second Hand Exposure: No; Do You Dip or Chew Tobacco: No; Tobacco Cessation Education Requested by Patient: No Hx Alcohol Use: Yes Hx Substance Use: No Preferred Language: Wolof Communication Ability: Effective Skin Washer Required: No Beliefs That Will Affect Care: None Current Living Situation: Spouse Other Information That Helps Us Care for You: No Feels Safe at Home: Yes Safety Concerns: Feels Safe At This Time Assistive Devices: Walker Review of Systems Constitutional: no fever and no chills Eyes: no blind spots and no diplopia Ear, Nose, Mouth, Throat: no hearing loss Respiratory: no cough and no dyspnea Cardiovascular: no chest pain and no palpitations Gastrointestinal: no nausea and no vomiting Genitourinary: no urinary incontinence Musculoskeletal: no neck pain and no myalgia Integumentary: no rash and no lesions Neurologic: as per Subjective / HPI Psychiatric: no depression and no anxiety Hematologic / Lymphatic: no easy bleeding and no easy bruising Exam (Neuro) Constitutional: well developed; no acute distress Eyes: normal visual varma by confrontation, PERRL and EOM intact bilaterally; no fundoscopic abnormality and no papilledema Cardiovascular: Vessels: normal carotid upstroke; no carotid bruit Neurologic: Oriented to:: Person, Place and Time Memory: Short Term Intact and Remote Intact Attention: Span Intact and Concentration Intact Speech Fluency: negative Dysarthria or Dysfluency Fund of Knowledge: Current Events, Past History and Vocabulary Cranial Nerves: Normal II, III, IV, , V, VIII, IX, X, XI and XII; Abnorm VII (Left lower facial weakness noted) Motor Strength: Hemiparesis (Face and arm) Laterality: Left; negative Normal Lower Extremities or Normal Upper Extremities Motor Tone: Normal Lower Extremities and Normal Upper Extremities Muscle Bulk/Involuntary Movements: No Involuntary Movements; negative Muscle Atrophy Sensation: Vibration Intact and Proprioception Intact; negative Light Touch Intact or Pain/Temperature Intact Coordination: Finger-Nose Abnormal Laterality: Left Deep Tendon Reflexes: Rt Triceps: 2+, Lt Triceps: 3+, Rt Biceps: 2+, Lt Biceps: 3+, Rt Brachioradialis: 2+, Lt Brachioradialis: 3+, Rt Patellar: 2+, Lt Patellar: 3+, Rt Ankle: 1+ and Lt Ankle: 2+ Special Tests: negative Babinski Present Details: Gait cannot be tested in the context of patient's current surgical/medical/neurological status. Full motor/sensory assessment of the right lower extremity cannot be performed due to postoperative status related to right total knee arthroplasty. Patient does have an element of left hemineglect with double simultaneous stimulation. Results & Data ([facility]) Vital Signs (Past 12 Hours) Vital Signs Temp Pulse Pulse Pulse Resp BP Pulse Ox 09/20/22 11:03 36.8 C 94 H 19 176/76 H 95 09/20/22 07:07 36.2 C L 82 18 171/74 H 95 09/19/22 23:59 85 09/20/22 03:09 36.4 C L 83 18 161/77 H 97 09/19/22 23:13 36.8 C 97 H 18 148/72 H 99 O2 Del Method 09/20/22 11:03 Room Air 09/20/22 07:07 Room Air 09/19/22 23:59 09/20/22 03:09 Room Air 09/19/22 23:13 Room Air Laboratory Results WBC 16.19, hemoglobin 14.0, hematocrit 38.6, platelet count 214, sodium 135, potassium 3.9, BUN 26, creatinine 1.29, glucose 172, hemoglobin A1c 5.6, magnesium 2.2, AST 14, ALT 15, triglycerides 76, cholesterol 187, LDL 130, VLDL 15, HDL 42, SARS-CoV-[address] testing negative Diagnostic Findings CT of the head, CT angiography of the head and neck, and brain MRI are as described in the history of present illness. I independently reviewed these images. Electrocardiogram reveals sinus tachycardia, possible left atrial enlargement. An echocardiogram revealed no interatrial shunt, normal left ventricular structure and function, EF 65 to 70%, mild concentric LVH, grade 1 diastolic dysfunction, no significant valvular disease, left atrial size normal. I see that an outpatient EMG of the left upper limb was completed this past June with Dr. Croft for further assessment of numbness in the left hand and fingers at that time. The study was unremarkable, however, with no evidence for distal mononeuropathy, polyneuropathy, or left cervical radiculopathy. PG Care Time/CCT Total # of Minutes Spent Total Time Spent with Patient: Total time spent is greater than 50% in coordination of care (as documented) at patient's floor/unit and/or counseling patient: Coding Level of Care Code 94887 Initial Inpt Care Lvl 3 Diagnoses Stroke I63.9 Carotid stenosis, right I65.21 Stenosis of left vertebral artery I65.02
--- NOTE | 2022-09-20 15:59 | Hospitalist Progress Note ---
Date of Service September 20, 2022 Assessment & Plan (1) Stroke: Plan: Stroke alert on 09/19 for left facial numbness, left facial droop, and left hand numbness/weakness. Last known well was prior night as patient noted the symptoms in the AM but no know time well in the morning. - CT head on 09/19 showing acute stroke - Full stroke work-up pending: * MRI brain show right frontal stroke. * CTA head/neck showed "distal petrous segment of the right ICA". Plan for tertiary care f/u within 2-3 weeks for neurovascular evaluation. * A1c of 5.6%, lipids showed LDL 130, HDL 42. * Echo on 09/19 showed no PFO * Neuro consulted - appreciate recs. - Optimize meds with ASA/Plavix x 3 weeks, then Plavix only. - Started statin (2) Status post right knee replacement: Plan: S/p right TKA with Dr. Swain on 09/18. No major issues noted in operative report. - Care per primary team - Recommended for rehab. (3) Hypertension: Plan: BP normally in the 140/80 range. SBP as high as 220 in acute setting of stroke alert, but now back down to 160/90. - Permissive hypertension in acute stroke setting - Continue home lisinopril for now -> Increase dose. (4) Carpal tunnel syndrome of left wrist: Plan: Long-standing hand pain in the left hand. Is following with Dr. Swain. - No acute needs (5) DVT prophylaxis: Plan: ASA/Plavix is acceptable per orthopedics. Admission and Anticipated Discharge Date Admission Date: September 20, 2022 Subjective Some better today. Does have some facial numbness at the philtrum. Physical Exam Constitutional: WD/WN, vitals as above Eyes: EOM intact bilaterally; no conjunctival abnormality ENMT: external ear and nose normal, oropharynx normal Neck: trachea midline, no thyromegaly normal visual inspection Respiratory: normal respiratory effort, lungs clear to auscultation no respiratory distress Cardiovascular: RRR, no murmur, no edema Gastrointestinal (Abdomen): Inspection/Auscultation: abdomen normal to inspection; abdomen not distended Musculoskeletal: no cyanosis or clubbing, extremities motor strength 5/5 Skin: no rashes, warm and dry Neurologic: moves all extremities and awake Psychiatric: Orientation: alert, oriented to person and cooperative Results & Data Results & Data ([place]) Vital Signs (Past 12 Hours) Vital Signs Temp Pulse Pulse Resp BP Pulse Ox O2 Del Method 09/20/22 15:10 36.8 C 74 21 148/69 H 95 Room Air 09/20/22 11:03 36.8 C 94 H 19 176/76 H 95 Room Air 09/20/22 07:07 36.2 C L 82 18 171/74 H 95 Room Air PG Care Time/CCT Total # of Minutes Spent Total Time Spent with Patient: Total time spent is greater than 50% in coordination of care (as documented) at patient's floor/unit and/or counseling patient: Coding Level of Care Code 97269 Subseq Hosp Care Lvl 3 Diagnoses Stroke I63.9 Status post right knee replacement Z96.651 Hypertension I10 Carpal tunnel syndrome of left wrist G56.02 DVT prophylaxis Z29.9
[2022-09-20] MEDS: SENNA 8.6 MG TAB PO SCH (21:11)
[2022-09-20] MEDS: ATORVASTATIN 40 MG TAB PO SCH (21:11)
[2022-09-21] MEDS: oxyCODONE HCL IR 5 MG TAB (IMMEDIATE RELEASE) PO PRN ×2 (02:25→09:42)
[2022-09-21] MEDS: ACETAMINOPHEN 500 MG TAB PO SCH ×3 (05:55→21:32)
--- NOTE | 2022-09-21 06:32 | Orthopedic Progress Note ---
Date of Service September 21, 2022 Assessment & Plan (1) Status post right knee replacement: Overall is doing very well with his right knee. He is still symptomatic from his stroke. He will be seen by physical therapy today for ambulation and range of motion exercises. He is on aspirin and Plavix. He can be discharged to [facility] when bed becomes available. There was some mention by the neurologist about possible vertebral artery stenting in [place]. We will try to clear this up before he leaves. Yogesh Jones was seen and examined at bedside this morning. Overall is doing well with his knee. He is not having much knee pain. He is still symptomatic from his stroke. He was seen by neurology yesterday. Physical therapy is recommending a stay at [facility].. Review of Systems All systems reviewed & are unremarkable except as noted in HPI & below. Physical Exam On physical examination of the right knee, the dressing is clean and dry. His leg is out to near full extension. He has active dorsiflexion plantarflexion of his right ankle.. Results & Data Results & Data Laboratory Results . Diagnostic Findings . PG Care Time/CCT Total # of Minutes Spent Total Time Spent with Patient: Total time spent is greater than 50% in coordination of care (as documented) at patient's floor/unit and/or counseling patient: Coding Level of Care Code 54119 Post Operative Follow-Up Diagnoses Status post right knee replacement Z96.651
[2022-09-21 07:35] LABS: Hematocrit (blood only) 33.1 % (40.1-51.0); Hemoglobin 11.6 g/dl (14.0-18.0); Mean Corpuscular Hemoglobin 30.3 pg (25.0-34.0); Mean Corpuscular Volume 86.4 fL (80.0-100.0); Platelet Count 178 K/uL (130-400); RDW Coefficient of Variation 12.4 % (11.5-14.5); RDW Standard Deviation 39.4 fL (36.4-46.3); Red Blood Count 3.83 M/uL (4.63-6.08); White Blood Count 8.35 K/ul (4.8-10.8)
[2022-09-21 07:55] LABS: BUN Creatinine Ratio 28.4 (10-20); Creatinine Clr Calc Pharmacy 71.1 ml/min; Est GFR (African American) 77.1 ml/min; Est GFR (Non-African American) 66.5 ml/min; Potassium 3.9 mmol/L (3.5-5.1)
[2022-09-21] MEDS: ASPIRIN 81 MG ECTAB PO SCH (09:06)
[2022-09-21] MEDS: lisinopril 20 MG TAB PO SCH (09:06)
[2022-09-21] MEDS: CLOPIDOGREL BISULFATE 75 MG TAB PO SCH (09:06)
[2022-09-21] MEDS: FINASTERIDE 5 MG TAB PO SCH (09:06)
[2022-09-21] MEDS: DOCUSATE SODIUM 100 MG CAP PO SCH ×2 (09:07→21:32)
[2022-09-21] MEDS: MULTIVITAMIN TAB PO SCH (09:07)
--- NOTE | 2022-09-21 14:16 | Hospitalist Progress Note ---
Date of Service September 21, 2022 Assessment & Plan (1) Stroke: Plan: Stroke alert on 09/19 for left facial numbness, left facial droop, and left hand numbness/weakness. Last known well was prior night as patient noted the symptoms in the AM but no know time well in the morning. - CT head on 09/19 showing acute stroke - Full stroke work-up pending: * MRI brain show right frontal-parietal stroke. * CTA head/neck showed "distal petrous segment of the right ICA". Plan for [facility] f/u within 2-3 weeks for neurovascular evaluation. * A1c of 5.6%, lipids showed LDL 130, HDL 42. * Echo on 09/19 showed no PFO * Neuro consulted - appreciate recs. - Optimize meds with ASA/Plavix x 3 weeks, then Plavix only. - Started statin - No change today. Plan for rehab when able. (2) Status post right knee replacement: Plan: S/p right TKA with Dr. Swain on 09/18. No major issues noted in operative report. - Care per primary team - Recommended for rehab. (3) Hypertension: Plan: BP normally in the 140/80 range. SBP as high as 220 in acute setting of stroke alert, but now back down to 160/90. - Permissive hypertension in acute stroke setting - Continue home lisinopril for now -> Increased dose on 09/21. Will monitor as BP still not ideally controlled, though will leave fine tuning to outpatient setting. (4) Carpal tunnel syndrome of left wrist: Plan: Long-standing hand pain, numbness, and weakness in the left hand (at least since this summer). Is following with Dr. Swain. Hard to discern how much of his current symptoms are carpal tunnel vs. the stroke. - No acute needs (5) DVT prophylaxis: Plan: ASA/Plavix is acceptable per orthopedics. Plan Given medical stability, Hospital Medicine team will sign off. Please re-consult with any questions or concerns. Thank you for letting us assist in the care of this patient! He can be discharged to rehab whenever bed is available. Admission and Anticipated Discharge Date Admission Date: September 20, 2022 Subjective Doing well today. No major change in the feeling of numbness, but not worse. Reports no fevers/chills, chest pain, shortness of breath, abdominal pain, nausea, or vomiting. Physical Exam Constitutional: WD/WN, vitals as above Eyes: EOM intact bilaterally; no conjunctival abnormality ENMT: external ear and nose normal, oropharynx normal Neck: trachea midline, no thyromegaly normal visual inspection Respiratory: normal respiratory effort, lungs clear to auscultation no respiratory distress Cardiovascular: RRR, no murmur, no edema Gastrointestinal (Abdomen): Inspection/Auscultation: abdomen normal to inspection; abdomen not distended Musculoskeletal: no cyanosis or clubbing, extremities motor strength 5/5 Left hand with poor coordination and weakness Skin: no rashes, warm and dry Neurologic: moves all extremities and awake Psychiatric: Orientation: alert, oriented to person and cooperative Results & Data Results & Data ([facility]) Vital Signs (Past 12 Hours) Vital Signs Temp Pulse Pulse Resp BP Pulse Ox O2 Del Method 09/21/22 11:03 36.7 C 87 18 163/75 H 95 Room Air 09/21/22 07:01 37.4 C 72 18 158/77 H 94 Room Air 09/21/22 02:43 36.8 C 92 H 18 169/91 H 93 Room Air PG Care Time/CCT Total # of Minutes Spent Total Time Spent with Patient: Total time spent is greater than 50% in coordination of care (as documented) at patient's floor/unit and/or counseling patient: Coding Level of Care Code 05502 Subseq Hosp Care Lvl 2 Diagnoses Stroke I63.9 Status post right knee replacement Z96.651 Hypertension I10 Carpal tunnel syndrome of left wrist G56.02 DVT prophylaxis Z29.9
[2022-09-21] MEDS: ATORVASTATIN 40 MG TAB PO SCH (20:01)
[2022-09-21] MEDS: SENNA 8.6 MG TAB PO SCH (20:01)
[2022-09-22] MEDS: ACETAMINOPHEN 500 MG TAB PO SCH ×3 (06:29→22:44)
[2022-09-22] MEDS: FINASTERIDE 5 MG TAB PO SCH (08:06)
[2022-09-22] MEDS: MULTIVITAMIN TAB PO SCH (08:06)
[2022-09-22] MEDS: ASPIRIN 81 MG ECTAB PO SCH (08:07)
[2022-09-22] MEDS: lisinopril 20 MG TAB PO SCH (08:07)
[2022-09-22] MEDS: DOCUSATE SODIUM 100 MG CAP PO SCH ×2 (08:07→20:14)
[2022-09-22] MEDS: CLOPIDOGREL BISULFATE 75 MG TAB PO SCH (08:07)
[2022-09-22] MEDS: oxyCODONE HCL IR 5 MG TAB (IMMEDIATE RELEASE) PO PRN (11:26)
--- NOTE | 2022-09-22 13:16 | Orthopedic Progress Note ---
Date of Service September 22, 2022 Assessment & Plan (1) Status post right knee replacement: He is doing well with regards to his right knee. He is on aspirin and Plavix for the stroke and DVT prophylaxis. He is orthopedically stable for discharge to [facility] when medically ready. Full discharge instructions from the neurologist were placed in the discharge summary as well. Yogesh Jones was seen and examined at bedside. Overall is doing well with regards to his right knee. Is not having too much pain. He has been up and ambulating with a walker. He has no complaints. Unfortunately he is still dealing with some left-sided weakness from the stroke.. Review of Systems All systems reviewed & are unremarkable except as noted in HPI & below. Physical Exam On physical examination of the right knee, the incision is clean and dry. He is neurovascular intact.. Results & Data Results & Data Laboratory Results . Diagnostic Findings . PG Care Time/CCT Total # of Minutes Spent Total Time Spent with Patient: Total time spent is greater than 50% in coordination of care (as documented) at patient's floor/unit and/or counseling patient: Coding Level of Care Code 60981 Post Operative Follow-Up Diagnoses Status post right knee replacement Z96.651
[2022-09-22] MEDS: ATORVASTATIN 40 MG TAB PO SCH (20:14)
[2022-09-22] MEDS: SENNA 8.6 MG TAB PO SCH (20:14)
[2022-09-23] MEDS: ACETAMINOPHEN 500 MG TAB PO SCH (05:40)
--- NOTE | 2022-09-23 08:00 | Orthopedic Progress Note ---
Date of Service September 23, 2022 Assessment & Plan (1) Status post right knee replacement: His knee is doing fairly well. He is still suffering from the symptoms of the stroke. He is under the care of the hospitalist and the neurologist for that. He is scheduled to be discharged to [facility] later today. He is on aspirin and Plavix for DVT prophylaxis. He will follow-up with orthopedics in 2 weeks. Subjective Pelvis and examined at bedside this morning. Overall is doing okay with his right knee. He is not in much pain. He still dealing with the symptoms from the stroke. He is scheduled to go to rehab today.. Review of Systems All systems reviewed & are unremarkable except as noted in HPI & below. Physical Exam On physical examination the right knee, the incision is clean and dry. His leg is out full extension. He is active dorsiflexion plantarflexion of his right ankle.. Results & Data Results & Data Laboratory Results . Diagnostic Findings . PG Care Time/CCT Total # of Minutes Spent Total Time Spent with Patient: Total time spent is greater than 50% in coordination of care (as documented) at patient's floor/unit and/or counseling patient: Coding Level of Care Code 22896 Post Operative Follow-Up Diagnoses Status post right knee replacement Z96.651
[2022-09-23] MEDS: ASPIRIN 81 MG ECTAB PO SCH (09:20)
[2022-09-23] MEDS: DOCUSATE SODIUM 100 MG CAP PO SCH (09:20)
[2022-09-23] MEDS: lisinopril 20 MG TAB PO SCH (09:20)
[2022-09-23] MEDS: MULTIVITAMIN TAB PO SCH (09:20)
[2022-09-23] MEDS: FINASTERIDE 5 MG TAB PO SCH (09:20)
[2022-09-23] MEDS: CLOPIDOGREL BISULFATE 75 MG TAB PO SCH (09:20)
[2022-09-23] MEDS: oxyCODONE HCL IR 5 MG TAB (IMMEDIATE RELEASE) PO PRN (10:08)
== END 2022-09-23 12:35 | DRG 469 ==
LOC: ASU 07:37 → 3E 07:37 → 2S 09-19 09:41

== ENCOUNTER 2024-01-28 07:47 | Inpatient (IN) ==
--- NOTE | 2023-11-29 09:47 | PAT Medication Instructions ---
Medication Instructions Date of Service November 29, 2023 Home Medications Medication Instructions Recorded atorvastatin 40 mg tablet 40 mg PO HS #30 tabs 09/20/22 clopidogrel 75 mg tablet 75 mg PO QAM #30 tabs 09/20/22 lisinopril 10 mg tablet 10 mg PO QAM finasteride 5 mg tablet 5 mg PO QAM atorvastatin 40 mg tablet 40 mg PO HS clopidogrel 75 mg tablet 75 mg PO QAM ASK your prescriber and surgeon clopidogrel 75 mg tablet 75 mg PO QAM DO NOT take the morning of surgery lisinopril 10 mg tablet 10 mg PO QAM Take morning of surgery With a small sip of water, OTHERWISE NOTHING TO EAT OR DRINK AFTER MIDNIGHT: finasteride 5 mg tablet 5 mg PO QAM Take evening before surgery atorvastatin 40 mg tablet 40 mg PO HS Other Notes If you have any questions please call us at [phone] or [phone] or [phone] or [phone]
--- NOTE | 2023-12-04 12:21 | Anesthesiology Consultation ---
Date of Service December 04, 2023 Assessment & Plan (1) Encounter for pre-operative examination: Plan - will request [facility] vascular medicine office note in [place]. - clopidogrel: patient was instructed and it was written on provided medication instructions that patient is to call prescriber provider if clopidogrel can be stopped for 7 days before surgery and to notify PAT if provider advises against this. He verbalized understanding. Chart Review Chart Review: Pending: Refer to Additional Notes / Consult section and Patient seen in Pre Admission Testing Teaching & Discussion Pre-Anesthesia Teaching/Discussion Notes: Instructed NPO after midnight before surgery, except medications with 15 cc of water. Medication instructions provided according to the PAT guidelines. History Surgery Operation Date: 01/28/24 11:20 Proposed Procedures p Partial versus Complete Revision Right Total Knee Arthroplasty - Jh Swain DO Height/Weight Height: 6 ft 1 in Weight: 91.2 kg Allergies Allergy/AdvReac Type Severity Reaction Status Date / Time No Known Drug Allergies Allergy Unknown . Verified 11/27/23 13:04 Medications Home Medications Medication Instructions Recorded Confirmed Last Taken lisinopril 10 mg tablet 10 mg PO QAM 10/22/19 11/27/23 09/17/22 07:00 finasteride 5 mg tablet 5 mg PO QAM 08/17/22 11/27/23 09/17/22 07:00 atorvastatin 40 mg tablet 40 mg PO HS #30 tabs 09/20/22 11/27/23 Unknown clopidogrel 75 mg tablet 75 mg PO QAM #30 tabs 09/20/22 11/27/23 Unknown Past Medical History Medical History (Updated 12/04/23 @ 12:30 by Mariel Bello PA-C) Carotid stenosis, right Short segment focus of high-grade stenosis involves the distal petrous segment of the right ICA on 09/19/22 head and neck CTA History of COVID-19 04/2022- sore throat, runny nose > resolved History of CVA (cerebrovascular accident) post op Rt TKA 09/2022 [facility]. left sided weakness/numbness. Hypertension controlled, stable per pt Sleep apnea Cannot tolerate CPAP Stenosis of left vertebral artery Additional areas of high-grade stenosis noted within the left vertebral artery on 09/19/22 head and neck CTA Patient denies h/o seizures, heart attack, heart failure, DM, DVTs, PEs or blood transfusions. Exercise / Class Metabolic Activity II 4-5 Yardwork/Stairs/Walk up hill (denies chest discomfort or shortness of breath with 1 FOS) Past Family History Family History Other No family history of adverse response to anesthesia Past Surgical History Surgical History History of knee replacement procedure of left knee History of meniscectomy of left knee Hx of arthroscopy of left knee Hx of colonoscopy Hx of laminectomy x3 Hx of rotator cuff surgery left Hx of sinus surgery Past Anesthesia History No Hx of Anesthesia Complications and No Family Hx of Anesthesia Complications History of PONV No Hx of PONV and No Hx of Motion Sickness Social History Smoking Status: Never smoker Do You Dip or Chew Tobacco: No Hx Alcohol Use: Yes alcohol intake frequency: a few times a month Hx Substance Use: No substance use type: does not use Review of Systems Patient denies chest pain, shortness of breath, dyspnea on exertion, reflux, fever, chills, cough, wheezing, or palpitations. Physical Exam Vital Signs Vitals BP 128/81 P 86 TEMP 98.4 SP02 96% on RA RESP 18 Physical Patient resting comfortably in chair in no acute distress, alert and oriented, responding appropriately throughout visit Full cervical extension range of motion without pain TMD 3.5 finger breadths Mallampati Score 2 Dentition: several caps/crowns, denies chipped or loose teeth, implants or bridges Lungs: normal respiratory effort. Good air movement, clear throughout to auscultation, no adventitious breath sounds Cardiac: regular rate and rhythm, no murmurs noted Carotid arteries: negative bruit bilat Lab Results Anesthesia Preop Results Results Anesthesia Widget: WBC 7.17 K/ul (4.8-10.8) 12/04/23 Hgb 14.7 g/dl (14.0-18.0) 12/04/23 Hct 42.9 % (42.0-52.0) 12/04/23 Plt 209 K/uL (130-400) 12/04/23 Na 139 mmol/L (136-145) 12/04/23 K 4.5 mmol/L (3.5-5.1) 12/04/23 Cl 106 mmol/L (98-107) 12/04/23 CO2 28 mmol/L (21-32) 12/04/23 BUN 18 mg/dl (6-23) 12/04/23 Creat 0.99 mg/dl (0.6-1.4) 12/04/23 Glucose Level 95 mg/dl (70-99(Fasting)) 12/04/23 PT 10.7 Seconds (9.0-12.0) 12/04/23 PTT 26 Seconds (21-31) 12/04/23 INR 1.0 (0.9-1.1) 12/04/23 Blood Type O Positive 12/04/23 Antibody Screen NEGATIVE 12/04/23 Testing Electrocardiogram Date: 12/04/23 NSR, rate 82 bpm Chest X-Ray Date: 11/11/23 *1view* No acute findings. Echocardiogram Date: 09/18/22 EF 65-70% Normal LV wall motion Mild cLVH Grade I diastolic dysfunction No significant valvular disease Other Testing Neck and head CTA 09/19/22 1. Small acute infarct of the superior right frontal lobe again noted. 2. No acute intracranial hemorrhage or midline shift. 3. Short segment focus of high-grade stenosis involves the distal petrous segment of the right ICA. 4. Additional areas of high-grade stenosis noted within the left vertebral artery. 5. No dissection, aneurysm or arterial occlusion identified.
--- NOTE | 2024-01-24 14:33 | History & Physical Report ---
Date of Service January 24, 2024 Assessment & Plan (1) Subluxation of right patella: We will proceed with a revision right knee replacement. Will plan on removing any scar tissue, exchanging the polyethylene implant, and possibly realigning the patella. However, a full revision may be necessary if the components are loose or if I am not happy with the position. He understands the risk, benefits, and alternatives with the procedures elected proceed. Postoperatively he will be started on aspirin and Plavix for DVT prophylaxis. He will be kept overnight in the hospital for postop medical management. He plans to have the hospital set up home health for discharge. History of Present Illness Chief Complaint: Mid flexion clunking of the right knee. Primary Care Provider: Lebron Pop MD Robert is a 73-year-old male who I did a right knee replacement on a year ago. Unfortunately, postoperatively, he suffered an ischemic stroke involving the left side. He does have some left-sided deficits. His right knee was doing well for the first 6 months, but then again began developing clicking and popping around the patella. It has been getting worse. At first, it was only clicking when he flexed past 90 degrees and then goes to extend. Now, when he gets to about 30 degrees, he has a click and he is also getting the click when he just walks. He is noticing increased instability to the knee. X-rays and MRI of the knee are concerning for possible mid flexion clunking. The hardware appears to be in good alignment. Allergies Allergy/AdvReac Type Severity Reaction Status Date / Time No Known Drug Allergies Allergy Unknown . 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 left sided weakness/numbness. History of COVID-19 04/2022- sore throat, runny nose > resolved Sleep apnea Cannot tolerate CPAP Hypertension controlled, stable per pt Surgical History Hx of colonoscopy Hx of rotator cuff surgery left History of meniscectomy of left knee Hx of arthroscopy of left knee History of knee replacement procedure of left knee Hx of laminectomy x3 Hx of sinus surgery Family History Other No family history of adverse response to anesthesia Social History Smoking Status: Never smoker Second Hand Exposure: No; Do You Dip or Chew Tobacco: No; Tobacco Cessation Education Requested by Patient: No Hx Alcohol Use: Yes Hx Substance Use: No Preferred Language: Portuguese Communication Ability: Effective Software Database Architect Required: No Beliefs That Will Affect Care: None Current Living Situation: Spouse Feels Safe at Home: Yes Safety Concerns: Feels Safe At This Time Assistive Devices: Hearing Aid - Bilateral Review of Systems All systems reviewed & are unremarkable except as noted in HPI & below. Physical Exam On physical examination of the right knee, he has clunking when he flexes beyond 30 degrees. The patella seems to slide slightly laterally but it does not fully subluxate.. Constitutional WD/WN, vitals as above Eyes PERRL, conjunctivae normal, anicteric sclerae ENMT external ear and nose normal, oropharynx normal Neck trachea midline, no thyromegaly Respiratory normal respiratory effort Cardiovascular RRR, no murmur, no edema Gastrointestinal (Abdomen) normal bowel sounds, soft, nontender, no hepatosplenomegaly Psychiatric A+Ox3, euthymic affect Results & Data Results & Data Laboratory Results . Diagnostic Findings . PG Care Time/CCT Total # of Minutes Spent Total Time Spent with Patient: Total time spent is greater than 50% in coordination of care (as documented) at patient's floor/unit and/or counseling patient: Coding Level of Care Code None Diagnoses Subluxation of right patella S83.001A
[~2024-01-28 07:47] MED LIST changes: -ACETAMINOPHEN 500 MG TAB PO SCH; +BUPIVACAINE 0.25% PF 30 ML VIAL ONE; -FAMOTIDINE 20 MG TAB PO SCH; -GABAPENTIN 300 MG CAP PO SCH; -LR 500ML BOLUS, THEN 15ML/HR IV SCH; -LR 60ML/HR IV SCH; -ORTHO JOINT MIX INFIL SCH; -ROPIVACAINE 0.5% 5 MG/ML 30 ML VIAL ONE; -TRANEXAMIC ACID 1,000 MG **IV Intra-op IV SCH; -TRANEXAMIC ACID 1,000 MG **IV Pre-op IV SCH; -ceFAZolin 2000MG 2,000 MG/15 ML SYR IV SCH; -dexAMETHasone 4 MG TAB PO SCH
[2024-01-28] MEDS: ACETAMINOPHEN 500 MG TAB PO SCH ×2 (08:33→21:41)
[2024-01-28] MEDS: dexAMETHasone**PF** 10 MG/ML VIAL IV SCH (08:33)
[2024-01-28] MEDS: FAMOTIDINE 20 MG TAB PO SCH (08:33)
[2024-01-28] MEDS: LR 500ML BOLUS, THEN 15ML/HR IV SCH (08:33)
[2024-01-28] MEDS: LR 60ML/HR IV SCH (08:34)
[2024-01-28] MEDS ORDERED: PROPOFOL IV EMULSION 10 MG/ML 20 ML VIAL IV ONE (08:44)
[2024-01-28] MEDS ORDERED: MIDAZOLAM HCL 1 MG/ML 2ML VIAL ONE (08:44)
[2024-01-28] MEDS ORDERED: PHENYLEPHRINE 100MCG/ML 10ML SYR IV ONE (08:44)
[2024-01-28] MEDS ORDERED: ONDANSETRON INJ 2 MG/ML 2 ML VIAL ONE (08:44)
[2024-01-28] MEDS ORDERED: ONDANSETRON INJ 2 MG/ML 2 ML VIAL IV PRN ×2 (08:46→14:06)
[2024-01-28] MEDS ORDERED: ePHEDrine sulfate 50 MG/ML AMP IV PRN (08:46)
[2024-01-28] MEDS ORDERED: PROMETHAZINE HCL 6.25 MG in SODIUM CHLORIDE 0.9% 50 ML IV PRN (08:46)
[2024-01-28] MEDS ORDERED: ATROPINE SULFATE 0.1 MG/ML 10ML SYR IV PRN (08:46)
[2024-01-28] MEDS ORDERED: fentaNYL citrate PF 100 MCG/2 ML VIAL IV PRN (08:46)
[2024-01-28] MEDS ORDERED: PHENYLEPHRINE HCL 10 MG/ML VIAL ONE (09:02)
--- NOTE | 2024-01-28 09:10 | History & Physical Bridge Note ---
Date of Service January 28, 2024 History & Physical Bridge Note I have examined the patient, reviewed the History & Physical and in the interval since the performance of the History & Physical I have noted the following changes of clinical significance: no changes noted
[2024-01-28] MEDS: TRANEXAMIC ACID 1,000 MG **IV Pre-op IV SCH (09:53)
[2024-01-28] MEDS: ceFAZolin 2000MG 2,000 MG/15 ML SYR IV SCH (10:08)
[2024-01-28] MEDS ORDERED: PHENYLEPHRINE 100MCG/ML 5ML SYR IV PRN (10:18)
[2024-01-28] MEDS: ORTHO JOINT ANESTHETIC ONE ×2 (11:13→12:06)
[2024-01-28] MEDS: TRANEXAMIC ACID 1,000 MG **IV Intra-op IV SCH (11:55)
[2024-01-28] MEDS: ROPIV 0.5% 246mg, Ketorolac 30mg, EPINEPHrine 0.5mg in NSS INFIL SCH (12:07)
--- NOTE | 2024-01-28 12:22 | Operative Report ---
PG Post Operative Report Pre & Post Diagnosis Operation Date: 01/28/24 10:15 Pre-Op Diagnosis: Patellofemoral instability right knee replacement Post-Op Diagnosis: Mid flexion instability right knee replacement I identified the patient and participated in the time-out.: Yes Procedure Operation Date: 01/28/24 10:15 Actual Procedures p Revision Right Total Knee Arthroplasty, Cemented(Right) with revision of femoral component and polyethylene insert.- Jh Swain DO Surgeon Jh Swain DO Mental Health Specialist Jh Altman PA-C Estimated Blood Loss 30 Findings Consistent with Post-Op Diagnosis Specimens None Description of Procedure On January 28, 2024 Robert arrived at [facility] for the above procedure. He was seen in the preoperative holding area and the operative extremity was identified and signed. He was given a preoperative antibiotic and a regional anesthetic and a spinal anesthetic. He was taken back to the operating room and laid on table supine position. He was put under basic sedation. The right knee was prepped and draped sterile fashion. A timeout was done. The patient and the operative extremity was properly identified. The previous midline incision was opened back up. Dissection was taken down to the extensor mechanism. A medial parapatellar arthrotomy was used. There was a little bit of synovial fluid within the joint and no signs of infection. There was not a lot of scar tissue in the joint. On examination, he had severe mid flexion instability. With the leg out full extension he had little to no valgus instability but when I flex the knee to about 30 to 45 degrees, he had significant instability. The femoral and tibial components were well-seated and appear to be in good alignment. The patella component was well-seated and in good alignment. The polyethylene insert was removed. Alignment matheus was used to check the tibia and the tibia appeared to be in anatomic alignment and appropriate rotation on the medial one third of the tibial tubercle. The cement mantle was intact. The tibia seemed fine. At this point I trialed a size 14 CPS polyethylene insert. I was not able to get his leg out to full extension and I still had some mid flexion instability. At this time I decided to do a revision of the femoral component. I wanted to remove a little more the distal femur and convert him to a CCK for increased stability. The femoral component was then removed with a sawblade. There was very little bone loss with removal of the femoral component. Repeat of the femoral canal up to a size 14 reamer was done. A distal femoral cutting block was placed and additional 3 to 4 mm were resected off the distal femur. A 4-in-1 cutting block was then placed in the appropriate rotation. Anterior posterior chamfer cuts were then made. A trial size 9+ femur with a 14 x 75 mm stem was impacted into place. I was able to get a solid fit. A size 18 CCK polyethylene insert was then snapped into place. The knee was brought through full range of motion and felt to be stable. There was no longer mid flexion instability and I was able to get them out to full extension. A lateral release was done on the patella. This helped with the patella tracking. The knee was brought through full range of motion and felt really good. The patella tracked appropriately. Trial components were then removed. The final size 9+ PRK femoral with a 14 x 75 mm stem was then cemented in place with Biomet cement. A 18 mm CCK polyethylene insert was then snapped into place. The setscrew was tightened. The knee was brought through full range of motion and felt to be stable. A 3-minute Betadine lavage was done. Surrounding soft tissues were injected with 100 cc of an orthopedic pain control cocktail. The extensor mechanism was closed with #1 Vicryl. The skin was closed with 2-0 Vicryl, 3 oh V-Loc suture, and marin. He was then placed in a soft compressive dressing. He was then taken to the postanesthesia care unit in stable condition. He tolerated the procedure well. Jh Altman PA-C, was present for the entire procedure. He was critical for patient positioning, prepping, draping, retraction exposure, wound closure and application of sterile dressing. I attest to the content of the Intraoperative Record and any orders documented therein. Any exceptions are noted below.
--- NOTE | 2024-01-28 13:34 | XRay Report ---
RIGHT KNEE 2 VIEWS History: Right total knee arthroplasty. Degenerative arthritis. Postop. FINDINGS: The patient is status post a right total knee arthroplasty. The hardware is intact. No frac ture or dislocation. Skin marin are in place. IMPRESSION: Right total knee arthroplasty. No evidence for hardware complication. ACT 112: Negative or not required by law. Electronically signed by: Tanmay Gonzalez M.D. 01/28/2024 1:33 PM
--- NOTE | 2024-01-28 13:45 | Anesthesiology Progress Note ---
Date of Service January 28, 2024 Anesthesia Post Procedure Vital Signs Vital Signs: Temp Pulse Pulse Resp BP Pulse Ox O2 Del Method 01/28/24 13:35 70 16 126/70 95 Room Air 01/28/24 13:25 75 16 132/79 96 Room Air 01/28/24 13:15 76 14 129/79 96 Room Air 01/28/24 13:05 80 14 133/72 96 Room Air 01/28/24 12:55 74 16 135/71 96 Room Air 01/28/24 12:45 75 16 131/70 99 Oxymask 01/28/24 12:35 36.4 C L 82 12 142/79 H 98 Oxymask 01/28/24 08:21 36.4 C L 78 20 152/95 H 98 Room Air O2 Flow Rate 01/28/24 13:35 01/28/24 13:25 01/28/24 13:15 01/28/24 13:05 01/28/24 12:55 01/28/24 12:45 3 01/28/24 12:35 6 01/28/24 08:21 Transfer of Care Handoff Completed per policy Notes Mental Status: alert / awake / arousable and participated in evaluation Patient Amnestic to Procedure: Yes Nausea / Vomiting: adequately controlled Pain: adequately controlled Airway Patency, RR, SpO2: stable & adequate BP & HR: stable & adequate Hydration State: stable & adequate Neuraxial Anesthesia: was administered and sensory block is resolving Anesthetic Complications: no major complications apparent and Pt Satisfied with anesthetic care
[2024-01-28] MEDS ORDERED: NALOXONE HCL 0.4 MG/1 ML VIAL/CARP IV PRN (14:06)
[2024-01-28] MEDS ORDERED: METOCLOPRAMIDE HCL INJ 5 MG/ML 2 ML VIAL IV PRN (14:06)
[2024-01-28] MEDS ORDERED: bisacodyL 10 MG SUPP PR PRN (14:06)
[2024-01-28] MEDS ORDERED: MAGNESIUM HYDROXIDE SUSP 30 ML UDC PO PRN (14:06)
[2024-01-28] MEDS ORDERED: traMADol HCL 50 MG TABLET PO PRN (14:06)
[2024-01-28] MEDS ORDERED: HYDROmorphone INJ 0.5 MG/0.5 ML SYR IV PRN (14:06)
[2024-01-28] MEDS: KETOROLAC TROMETHAMINE 15 MG/ML VIAL IV SCH (14:35)
[2024-01-28] MEDS: SODIUM CHLORIDE 0.9% 1,000 ML IV SCH (14:35)
[2024-01-28] MEDS: GABAPENTIN 300 MG CAP PO SCH (14:58)
[2024-01-28] MEDS: ceFAZolin 1000MG 1,000 MG/7.5 ML SYR IV SCH (17:19)
[2024-01-28] MEDS: oxyCODONE HCL IR 5 MG TAB (IMMEDIATE RELEASE) PO PRN (18:28)
[2024-01-28] MEDS: SENNA 8.6 MG TAB PO SCH (21:02)
[2024-01-28] MEDS: DOCUSATE SODIUM 100 MG CAP PO SCH (21:02)
[2024-01-28] MEDS: ATORVASTATIN 40 MG TAB PO SCH (21:02)
[2024-01-29] MEDS: CLOPIDOGREL BISULFATE 75 MG TAB PO SCH (08:03)
[2024-01-29] MEDS: ASPIRIN 81 MG ECTAB PO SCH ×2 (08:04→20:54)
[2024-01-29] MEDS: dexAMETHasone 4 MG TAB PO SCH (08:04)
[2024-01-29] MEDS: lisinopril 10 MG TAB PO SCH (08:04)
[2024-01-29] MEDS: FINASTERIDE 5 MG TAB PO SCH (08:04)
[2024-01-29] MEDS: MULTIVITAMIN TAB PO SCH (08:04)
--- NOTE | 2024-01-29 11:20 | Orthopedic Progress Note ---
Date of Service January 29, 2024 Assessment & Plan (1) Status post revision of total replacement of right knee: Overall, he is doing quite well today with good pain control. He will work with physical therapy later this morning to work on ambulation and range of motion exercises. He is currently on aspirin and Plavix for DVT prophylaxis. 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 Will continue to monitor him today with anticipated discharge tomorrow. Subjective . Robert was seen and evaluated this morning resting comfortably in no apparent distress. He notes good pain control to the right knee. He notes they have been out of bed and ambulate with no significant issues. He does have left- sided weakness due to a previous CVA. He has yet to work with physical therapy this morning. He denies any other concerns today. Review of Systems All systems reviewed & are unremarkable except as noted in HPI & below. Physical Exam . On physical examination of the right knee, the dressings are clean, dry, intact. His leg is out in full extension. He has active plantarflexion dorsiflexion right ankle. +2 DP and PT pulses. Less than 2-second capillary refill. Normal sensation. Neurovascular intact. Results & Data Results & Data Laboratory Results . Diagnostic Findings . Postoperative x-rays of the right knee show prosthesis to be in anatomical alignment with no signs of fracture complication or loosening. PG Care Time/CCT Total # of Minutes Spent Total Time Spent with Patient: Total time spent is greater than 50% in coordination of care (as documented) at patient's floor/unit and/or counseling patient: Coding Level of Care Code 98186 Post Operative Follow-Up Diagnoses Status post revision of total replacement of right knee Z96.651
--- NOTE | 2024-01-30 10:19 | Orthopedic Progress Note ---
Date of Service January 30, 2024 Assessment & Plan (1) Status post revision of total replacement of right knee: Overall, he is doing quite well today with good pain control. He will work with physical therapy later this morning to work on ambulation and range of motion exercises. He is currently on aspirin and Plavix for DVT prophylaxis. He can be discharged home later this morning pending formal physical therapy evaluation and recommendations. Prescription was given to case management for him for outpatient physical therapy as well as for a hemiwalker. He will follow-up with orthopedics in 2 weeks for postoperative management. Subjective .Robert was seen and evaluated this morning resting comfortably in no apparent distress. He notes good pain control to the right knee. He notes that he has been out of bed and ambulate with no significant issues. He does have left- sided weakness due to a previous CVA. He has participated with physical therapy during his stay and this has been going well. He denies any other concerns today. Review of Systems All systems reviewed & are unremarkable except as noted in HPI & below. Physical Exam .On physical examination of the right knee, the dressings are clean, dry, intact. His leg is out in full extension. He has active plantarflexion dorsiflexion right ankle. +2 DP and PT pulses. Less than 2-second capillary refill. Normal sensation. Neurovascular intact. Results & Data Results & Data Laboratory Results . Diagnostic Findings . PG Care Time/CCT Total # of Minutes Spent Total Time Spent with Patient: Total time spent is greater than 50% in coordination of care (as documented) at patient's floor/unit and/or counseling patient: Coding Level of Care Code 19036 Post Operative Follow-Up Diagnoses Status post revision of total replacement of right knee Z96.651
--- NOTE | 2024-01-30 10:22 | Discharge Summary ---
Date of Service January 30, 2024 Admission HPI (Per Admitting) Robert is a 73-year-old male who I did a right knee replacement on a year ago. Unfortunately, postoperatively, he suffered an ischemic stroke involving the left side. He does have some left-sided deficits. His right knee was doing well for the first 6 months, but then again began developing clicking and popping around the patella. It has been getting worse. At first, it was only clicking when he flexed past 90 degrees and then goes to extend. Now, when he gets to about 30 degrees, he has a click and he is also getting the click when he just walks. He is noticing increased instability to the knee. X-rays and MRI of the knee are concerning for possible mid flexion clunking. The hardware appears to be in good alignment. Admission Exam (Per Admitting) On physical examination of the right knee, he has clunking when he flexes beyond 30 degrees. The patella seems to slide slightly laterally but it does not fully subluxate.. Principal Diagnosis Same as "Discharge Diagnosis" noted below under Discharge Instructions. Discharge Exam .On physical examination of the right knee, the dressings are clean, dry, intact. His leg is out in full extension. He has active plantarflexion dorsiflexion right ankle. +2 DP and PT pulses. Less than 2-second capillary refill. Normal sensation. Neurovascular intact. Discharge Data Procedures Performed Operation Date: 01/28/24 10:15 Actual Procedures p Revision Right Total Knee Arthroplasty, Cemented(Right) - Jh Swain DO Ordered Studies 01/28/24 05:00 US - OR guided needle placemen Routine Hospital Course (1) Status post revision of total replacement of right knee: On January 28, 2024 Robert arrived at [facility] and underwent a revision right total knee arthroplasty performed by Dr. Swain with no complications. He had a spinal anesthetic. Postoperatively, he was started on aspirin and Plavix for DVT prophylaxis and transferred to the general orthopedic floors stable condition. His hospital course was uneventful. On postoperative day #1, his vital signs are stable and his pain is well-controlled. He participated well with physical therapy working on ambulation and range of motion exercises. Due to his previous CVA affecting his left side, he did not feel quite comfortable yet being discharged home with just his . He wished to stay 1 more night so he can work with physical therapy 1 more time in the next day. No other significant events occurred during the day. On postoperative day #2, his vital signs are stable and his pain is well- controlled. He participated well with physical therapy working on ambulation and range of motion exercises. He was then discharged home in stable condition. He will follow-up with orthopedics in 2 weeks for postoperative management. PG Care Time/CCT Total # of Minutes Spent Total Time Spent with Patient: Total time spent is greater than 50% in coordination of care (as documented) at patient's floor/unit and/or counseling patient: Discharge Plan Discharge Items Patient Disposition: Home - Self-Care Reason For Visit: POST OP Discharge Diagnosis: Same Activity: Per Instructions section Non-emergency contact: Surgeon Call non-emergency contact if: your temperature is above 101.5, your wound has increased redness, your wound has increased drainage and your wound pain has increased Follow-up/Referrals: Lebron Pop MD [Primary Care Provider] - Diet: Regular Addtl Attending Provider Instructions: Activity and Therapy Recommendations: * If you are using [facility] then therapy will be provided at your home until they feel you have accomplished all of your goals. * If you are using [facility] then Physical Therapy will be provided until they feel you are ready to start Outpatient Physical Therapy. * If you are not using home therapy then Outpatient Physical Therapy should start about 3-5 days from your day of surgery. Therapy will last about 6-10 weeks * It is important not to put a pillow under your knee when you are relaxing or sleeping. It is just as important to make sure you are getting your knee perfectly straight as it is to regain your knee bend. * You were shown a series of exercises in the hospital. Do these exercises three times each day including the exercises you were shown in physical therapy. * Get up and walk several times each day. For the first four weeks, try not to stand or walk for more than one hour at a time. If you do stand or walk for more than one hour, you will not hurt anything, but your leg will likely swe ll. * As you feel comfortable, you may change from the walker or crutches to a cane and then to independent walking. Medications: * Narcotic You will likely be sent home from the hospital with a prescription for the narcotic pain medication that worked best throughout your stay. * Cefadroxil -take the antibiotic twice a day for 10 days to help prevent infection. * Continue your aspirin and Plavix as prescribed.. * Other medications may be prescribed for specific circumstances. If you have any questions, please call the office at . * Resume previous home medications unless otherwise instructed TEDs/Elastic Stockings: The white elastic stockings help limit swelling and prevent blood clots from forming in your legs.~ The more you wear them, the more they work. Wear them for six weeks. Dressing Care: The dressing can be changed after physical therapy on postop day #1. Daily dry dressing changes for a few days, especially if the incision is still draining some. If the incision is not draining then you may leave the marin open to air. If there is a little bit of drainage or if the marin are getting stuck on your clothing then cover the incision with a dry dressing. The marin will be removed at your 2 week follow-up appointment. Showering: You may shower 5 days from the day of surgery as long as the incision is no longer draining. You may shower with the marin exposed. Let soapy water run over the marin and pat them dry. Do not scrub or soak the incision. Things To Watch For: * Drainage from the incision site that occurs more than one week after your surgery. * Increased redness at the incision site. * Fever above 102 degrees Fahrenheit. * Unusual chest pain or shortness of breath. * Call [facility] at with any of the above problems Follow-Up Visit: Follow-up with Dr. Swain's PA (Jh Altman) 2-3 weeks after your day of surgery. He will remove your marin and answer any questions. If you have any additional questions or concerns, Dr Swain is usually in the office at the same time and will be available An appointment was probably scheduled when you signed-up for surgery in the office. If you have any questions call Office Instructions: More detailed instructions as well as Frequently Asked Questions were provided in a folder by our office when you signed-up for surgery. Please review these instructions when you get home. If you have any further questions or concerns, please feel free to call the office at [phone] Pending Studies at Discharge: No Stand-Alone Forms: My [facility], Smoking Cessation Medications and DC Order Prescriptions: New oxycodone 5 mg Tablet 5 mg PO Q6H PRN (Reason: pain) Qty: 30 0RF cefadroxil 500 mg capsule 500 mg PO BID 10 Days Qty: 20 0RF aspirin 81 mg Tablet,Delayed Release (Dr/Ec) 81 mg PO BID 42 Days Qty: 0 0RF Continued lisinopril 10 mg tablet 10 mg PO QAM finasteride 5 mg Tablet 5 mg PO QAM clopidogrel 75 mg Tablet 75 mg PO QAM Qty: 30 1RF atorvastatin 40 mg Tablet 40 mg PO HS Qty: 30 1RF Discontinued aspirin 81 mg Capsule 81 mg PO DAILY Discharge Orders: Discharge Order (Routine); Ordered 01/30/24 Ordered By: Leon Benitez Admission Data Admit Date/Time: 01/29/24 08:11 Attending Provider: Jh Swain Admit Provider: Jh Swain Primary Care Provider: Lebron Pop Other Interventions: Discharge Summary Assessment (RN) Last Done: 01/30/24 09:36
== END 2024-01-30 11:26 | disposition home or self-care (01) | DRG 467 ==
LOC: ASU 07:47 → 3E 07:47